=== PATIENT | male | born 1970 | race Caucasian/White ===

== ENCOUNTER 2017-07-20 10:47 | Emergency (ER) | payer OTHER ==
[~2017-07-20] VITALS: Ht 190.5 cm; Wt 97.5 kg
--- NOTE | 2017-07-20 12:13 | ULTRASOUND REPORT ---
EXAMINATION: US TRIPLEX LOWER EXTREMITY, RIGHT CLINICAL INFORMATION: Right lower calf redness. Swelling. COMPARISON: None TECHNIQUE: Color-flow triplex imaging with spectral analysis and compression Doppler were performed on the lower extremity. FINDINGS: Respiratory variation, normal compression and augmented flow are noted throughout the lower extremity. The visualized common femoral vein, superficial femoral vein, profunda femoral vein, popliteal vein and midcalf peroneal and posterior tibial venous segments show no evidence of deep venous thrombosis. There is no Bronson's cyst. IMPRESSION: Normal triplex scan without evidence of deep venous thrombosis involving the lower extremity.
[2017-07-20 13:25] VITALS: BP 117/81
--- NOTE | 2017-07-20 14:25 | ED UPPER/LOWER EXTREMITY COMPL ---
History of Present Illness General Chief Complaint: General Adult Stated Complaint: SENT BY URGENT CARE FOR ? BLOOD CLOT/CELLULITIS Source: patient Exam Limitations: no limitations Vital Signs & Intake/Output Vital Signs & Intake/Output Vital Signs Date Time Temp Pulse Resp B/P B/P Pulse O2 O2 Flow FiO2 Mean Ox Delivery Rate 07/20 1325 97.9 78 20 117/81 96 Room Air 07/20 1050 96.6 84 18 116/75 97 Room Air Room Air Allergies Coded Allergies: No Known Allergies (07/20/17) Reconcile Medications Cephalexin (Keflex) 500 MG CAPSULE 1 CAP PO TID CELLULITIS Triage Note: PT TO ED WITH FAMILY FROM URGENT CARE WITH RIGHT LOWER LEG REDNESS AND SWELLING FOR R/O DVT. SYMPTOMS STARTED MONDAY. Triage Nurses Notes Reviewed? yes Onset: Gradual Duration: day(s): (4) Timing: no prior history Severity: moderate Severity Numbers: 5 Pain/Injury Location: Right: Leg. Method of Injury: unknown Modifying Factors: Improves With: immobilization. Worsens With: movement. HPI: Patient is a 47-year-old with history of TBI presenting to the emergency department with chief complaint of right lower extremity edema and mild erythema The past 4-5 days. No fevers chills nausea vomiting chest pain or shortness of breath. Patient reports that it's worse with certain movements. Went to the walk-in clinic and a symptom to the emergency department for ultrasound to rule out DVT. Denies calf pain. Denies any numbness or tingling in the right lower extremities. Has not been taking anything [id number] to help her symptoms. (Pamela Taylor) Past History Travel History Traveled to [place] past 21 day No Medical History Any Pertinent Medical History? 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 No (Pamela Taylor) Review of Systems Review of Systems Constitutional: Reports: no symptoms. Comments Review of systems: See HPI, All other systems negative. Constitutional, no chills fever or weight loss HEENT: No visual changes no sore throat no congestion Cardiovascular: No chest pain ,palpitation Skin, no jaundice Respiratory: No dyspnea cough sputum or hemoptysis GI: No nausea no vomiting Muscle skeletal: no back pain, no neck pain, Neurologic: No numbness no confusion Psych: No stress anxiety Immunology: No splenectomy or history of AIDS (Pamela Taylor) Physical Exam Physical Exam General Appearance: well developed/nourished, no apparent distress, alert, awake , comfortable Comments: Well-developed well-nourished person in no acute distress HEENT: Atraumatic, normocephalic Neck: Normal inspection Cardiovascular: The pulses are 2+ bilaterally. Respiratory: No respiratory distress. Extremity: Mild nonpitting edema noted in the right lower extremity with mild erythema over the anterior distal harris. Warm to palpation of this area. Blanchable. No fluctuance. Foot drop brace noted over the left foot. Residual deficits from TBI noted in the left upper lower extremity. Full range of motion of right ankle and foot without difficulty or pain. Full range of motion of right knee without difficulty or pain. Neuro: Alert oriented x3, motor sensory normal IN RIGHT LOWER EXT. Skin: No appreciable rash on exposed skin, skin is warm and dry. Psych: Mood and affect is normal, memory and judgment is normal. (Pamela Taylor) Progress Differential Diagnosis: contusion, DVT, sprain, tendon injury Plan of Care: Likely cellulitis as ultrasound is negative. Patient will be treated with antibiotics. Patient is nontoxic. Educated on signs and symptoms return. Diagnostic Imaging: Viewed by Me: Ultrasound. Discussed w/RAD: Ultrasound. Radiology Impression: PATIENT: AUGUSTIN ROBLES PRESENT AGE: 47 PATIENT ACCOUNT NO: [id number] : 71 LOCATION: [facility] ORDERING PHYSICIAN: Peter Salazar DO (TBS) SERVICE DATE: 07/20/17 EXAM TYPE: US - US-DUPLEX VENOUS EXTREM UNI EXAMINATION: US TRIPLEX LOWER EXTREMITY, RIGHT CLINICAL INFORMATION: Right lower calf redness. Swelling. COMPARISON: None TECHNIQUE: Color-flow triplex imaging with spectral analysis and compression Doppler were performed on the lower extremity. FINDINGS: Respiratory variation, normal compression and augmented flow are noted throughout the lower extremity. The visualized common femoral vein, superficial femoral vein, profunda femoral vein, popliteal vein and midcalf peroneal and posterior tibial venous segments show no evidence of deep venous thrombosis. There is no Bronson's cyst. IMPRESSION : Normal triplex scan without evidence of deep venous thrombosis involving the lower extremity. 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 <Electronically signed in Other Vendor System> SIGNED BY: Sg Olvera MD 07/20/17 1213 (Pamela Tyalor) Departure Departure Time of Disposition: 1423 Disposition: HOME OR SELF CARE Condition: Stable Clinical Impression Primary Impression: Cellulitis Secondary Impressions: Leg edema Referrals: Patient Has No Primary Care Dr (PCP/Family) Additional Instructions: Follow-up with the primary care physician in the next 5-7 days for recheck. Elevate your leg as much as possible. Take antibiotics as prescribed. Return for any worsening symptoms or concerns. Use [id number] Tylenol for any aches or pains. Departure Forms: Customer Survey General Discharge Information Prescriptions: Current Visit Scripts Cephalexin (Keflex) 1 CAP PO TID #30 CAP (Pamela Taylor) PA/EMBOSSOGRAPH OPERATOR Co-Sign Statement Statement: ED Attending supervision documentation- I saw and evaluated the patient. I have also reviewed all the pertinent lab results and diagnostic results. I agree with the findings and the plan of care as documented in the PA's/EMBOSSOGRAPH OPERATOR's documentation. x I have reviewed the ED Record and agree with the PA's/EMBOSSOGRAPH OPERATOR's documentation. [] Additions or exceptions (if any) to the PAs/EMBOSSOGRAPH OPERATOR's note and plan are summarized below: [] (Ashanti STEVENS,Collins)
[2017-07-20] MEDS ORDERED: KEFLEX500 M1 PO (14:26)
== END 2017-07-20 14:37 ==
LOC: ERH 10:47
DX: L03.115 Cellulitis of right lower limb (principal); R60.0 Localized edema